=== PATIENT | male | born 1950 | race Asian ===

== ENCOUNTER → 2016-08-07 | Outpatient (CLI) | payer MEDICARE ==
[~2016-08-07] MED LIST: IBUPROFEN PO; LIPITOR PO; LORTAB 5/500 TA1 TA1 PO; MEDROL PO; MOTRIN600 MG
--- NOTE | ~2016-08-07 | CR184 ---
[facility] A Service of [facility] [place] [facility] RADIOLOGY TEXT RESULTS PATIENT: AMANDA WALDEN V LOCATION: [facility] : 50 UNIT #: [id number] AGE: [address]: Chastity Rodriguez MD SEX: M ORDER DR: [id number] [facility] [address] [place], [place] [address] [id number] O MR#: [id number] Acc #: [id number] NAME: AMANDA WALDEN V. : 1950 SEX: M STUDY DATE/TIME: 08/07/2016 17:04 UNIT: [facility] ROOM: STUDY DESCRIPTION: CR Lumbar Spine Min 4 Views Attending Physician: Chastity Rodriguez M.D. Referring Physician: Chastity Rodriguez M.D. Ordering Physician: Chastity Rodriguez M.D. Primary Care Physician: Chastity Rodriguez M.D. MEDICAL IMAGING REPORT This report is preliminary unless electronic signature is present EXAM Lumbar spine 4 views HISTORY 66-year-old male. Pain radiating down right leg. Onset 5 days ago. No known injury. FINDINGS AP, lateral and flexion/extension lateral views of the lumbar spine were obtained. Mild multilevel degenerative disc changes most pronounced L2-3 and L5-S1. At L2-3, there is mild disc space narrowing, endplate sclerosis, and anterior hypertrophic change. Mild degenerative change also noted at L1-2. At L5-S1, there is disc space narrowing, sclerosis, and anterior hypertrophic change. No fracture. No spondylolysis or spondylolisthesis. No abnormal motion identified on the flexion/extension views. Posterior elements unremarkable. The soft tissues appear normal. IMPRESSION Mild multilevel degenerative disc disease most pronounced L2-3 and L5-S1 and to a lesser extent at L1-2. Comparison is made to a study from 08/17/2009 and there has been progression of the degenerative disc changes at L1-2 and L2-3 and also at the L5-S1 level. No acute abnormality identified. Dictated by... Sherry Boateng M.D. THIS IS AN ELECTRONICALLY VERIFIED REPORT Sherry Boateng M.D. at 08/12/2016 2:13 PM KAILYN/anusha TD: 08/08/2016 08:26 [facility]. [facility] A Service of [facility] RADIOLOGY TEXT RESULTS PATIENT: AMANDA WALDEN V LOCATION: [facility] #: [id number] : [birth year] UNIT #: [id number] AGE: [address]: Chastity Rodriguez MD SEX: M ORDER DR: JOB #: [id number] MEDICAL IMAGING REPORT Page 1 of 1 COPY
== END | disposition home or self-care (01) ==
LOC: CRAD 16:43
DX: M51.36 Other intervertebral disc degeneration, lumbar region (principal); M51.37 Other intervertebral disc degeneration, lumbosacral region
CPT/HCPCS: 72110

== ENCOUNTER → 2016-09-09 | Outpatient (CLI) | payer MEDICARE ==
--- NOTE | ~2016-09-09 | MR113 ---
[facility] A Service of [facility] & [facility] RADIOLOGY TEXT RESULTS PATIENT: AMANDA WALDEN LOCATION: [facility] : 50 UNIT #: [id number] AGE: [address]: Chastity Rodriguez MD SEX: M ORDER DR: [id number] [facility] [address] [place], [place] [address] [id number] O MR#: [id number] Acc #: [id number] NAME: AMANDA WALDEN : 1950 SEX: M STUDY DATE/TIME: 09/09/2016 13:49 UNIT: [facility] ROOM: STUDY DESCRIPTION: MR Lumbar Wo Contrast Attending Physician: Chastity Rodriguez M.D. Referring Physician: Chastity Rodriguez M.D. Ordering Physician: Chastity Rodriguez M.D. Primary Care Physician: Chastity Rodriguez M.D. MRI CENTER REPORT This report is preliminary unless electronic signature is present. EXAM MRI of the lumbar spine without contrast dated 09/09/2016. COMPARISON MRI lumbar spine without contrast dated 09/29/2007 and plain films lumbar spine dated 08/17/2009 and 08/07/2016. HISTORY Right hip to right leg pain with numbness for 2 weeks. Low back pain. FINDINGS Multisequence multiplanar imaging of the lumbar spine was obtained without contrast as per the protocol. Vertebral body heights are relatively preserved. Disc osteophyte complex are noted throughout the visualized thoracolumbar spine, worse at L4-5. Conus terminates at L1-2. Signal of conus and cauda equina are within normal limits. Prominence of posterior epidural fat is noted at L2-3 to L4-5 levels with canal stenosis. Epidural lipomatosis is present. Increased T2 signal 1.5 cm lesion is noted in the posterolateral upper to mid right kidney, incompletely characterized on the current study. It is probably a small cyst based on statistics. It was not well seen on the prior study from 9 years ago. There are no prior abdominal imaging available in the current facility. L1-2: Concentric disc bulge with znep-up-yyyuhyrg bilateral facet change. Borderline size to mild canal stenosis is seen without any significant neural foraminal narrowing. L2-3: Moderate disc bulge with superimposed right ukusqfq-cq-vgbcnxiriwqd protrusion. Mild bilateral facet changes are noted with xupjnvxn-qz-xzmane canal stenosis. Mild bilateral lateral recess stenosis are noted with mild bilateral neural foraminal narrowing. It is slightly worse. [facility] A Service of [facility] RADIOLOGY TEXT RESULTS PATIENT: AMANDA WALDEN [facility] : 50 UNIT #: [id number] AGE: [address]: Chastity Rodriguez MD SEX: M ORDER DR: L3-4: Concentric disc bulge with mild left facet hypertrophic change. There is a vzafv-zn-uiaa central moderate protrusion with wfphdeel-ee-kffsqq canal stenosis. Mild bilateral lateral recess stenosis are noted with mild bilateral neural foraminal narrowing. Mild interval worsening. L4-5: Moderate disc bulge with superimposed wrah-wz-uokiq subarticular moderate broad-based protrusion with an extruded component in the right subarticular region. It measures 0.7 x 1.6 x 1.3 cm. Severe canal stenosis with severe right lateral recess, mild left lateral recess stenosis and mild bilateral neural foraminal narrowing are noted, worse level. Mild to moderate right and mild left facet hypertrophic changes are noted. L5-S1: Disc osteophyte complex which is asymmetrically prominent in the left ithaugq-pn-swctf subarticular region with mild impingement of the right S1 nerve root. Mild inferior bilateral neural foraminal narrowing is seen with mild bilateral facet changes. Relatively stable. IMPRESSION 1. Degenerative changes are at multiple levels. They have relatively worsened with the worst level of L4-5. 2. There is a left to right subarticular moderate broad-based protrusion at L4-5 with an extruded component in the right gvybvti-ji-kqpcoqbcncgx region measuring 1.3 cm in height. Axially it measures 0.7 x 1.6 cm. It causes severe canal stenosis and severe impingement of the right L5 nerve root in the right lateral recess. 3. Refer above. 4. Incompletely evaluated right renal lesion as described above. Statistically it is probably a cyst but there are no previous studies available for comparison and without contrast solid tumors cannot be excluded. Dictated by... Louisa Arriaga M.D. THIS IS AN ELECTRONICALLY VERIFIED REPORT Louisa Arriaga M.D. at 09/11/2016 2:12 PM CPR/cmm TD: 09/10/2016 10:07 JOB #: [id number] MRI CENTER REPORT Page 1 of 1 COPY
== END | disposition home or self-care (01) ==
LOC: CMRI 13:23
DX: M51.36 Other intervertebral disc degeneration, lumbar region (principal); M47.896 Other spondylosis, lumbar region; M51.26 Other intervertebral disc displacement, lumbar region; N28.89 Other specified disorders of kidney and ureter
CPT/HCPCS: 72148

== ENCOUNTER → 2016-09-17 | Outpatient (CLI) | payer MEDICARE ==
--- NOTE | ~2016-09-17 | CT3 ---
[facility] A Service of [facility] & [facility] RADIOLOGY TEXT RESULTS PATIENT: AMANDA WALDEN [facility] 50 UNIT #: [id number] AGE: [address]: Chastity Rodriguez MD SEX: M ORDER DR: [id number] [facility] [address] [place], [place] [address] [id number] O MR#: [id number] [facility] #: [id number] NAME: AMANDA WALDEN : 1950 SEX: M STUDY DATE/TIME: 09/17/2016 10:05 UNIT: [facility] ROOM: STUDY DESCRIPTION: CT Abd and Pelv WWo Cont Attending Physician: Chastity Rodriguez M.D. Referring Physician: Chastity Rodriguez M.D. Ordering Physician: Chastity Rodriguez M.D. Primary Care Physician: Chastity Rodriguez M.D. MEDICAL IMAGING REPORT This report is preliminary unless electronic signature is present EXAM CT of the abdomen and pelvis with and without contrast INDICATIONS Renal mass seen on MRI of the lumbar spine. Study is performed for further characterization. Renal mass on the right. TECHNIQUE CT of the abdomen and pelvis performed before and after the administration of IV contrast using a multiphase protocol. Coronal and sagittal reformatted images were obtained. This CT exam was performed with one or more of the following radiation dose reduction techniques: Automatic exposure control, adjustment of mA and/or kV according to patient size, and iterative reconstruction. Comparison with MRI of the lumbar spine 09/09/2016. FINDINGS There is scarring within both lower lobes. The liver, gallbladder and spleen are unremarkable. There is no evidence for renal stone. There is a benign cyst in the right kidney, which accounts for the finding on the MRI. There is a tiny cyst in the left kidney. There is no evidence for a solid renal mass. The adrenal glands and pancreas are unremarkable. PELVIS: The colon is unremarkable. The appendix is normal. There is tortuosity of the infrarenal abdominal aorta with some mild ectasia. There is some mild atherosclerotic atheromatous plaque located on the right within the infrarenal abdominal aorta. Urinary bladder is unremarkable. Prostate is mildly enlarged. Bone windows show degenerative change at L5-S1. [facility] A Service of [facility] RADIOLOGY TEXT RESULTS PATIENT: AMANDA WALDEN LOCATION: [facility] : 50 UNIT #: [id number] AGE: [address]: Chastity Rodriguez MD SEX: M ORDER DR: IMPRESSION There is no solid renal mass. The finding on the MRI represents a benign cyst in the right kidney. There is also a tiny cyst in the left kidney. Dictated by... Tom Boateng M.D. THIS IS AN ELECTRONICALLY VERIFIED REPORT Tom Boateng M.D. at 09/18/2016 7:10 AM ALISON/elian TD: 09/18/2016 00:47 JOB #: [id number] MEDICAL IMAGING REPORT Page 1 of 1 COPY
[2016-09-17 12:26] LABS: POC - CREATININE 0.72 mg/dL (0.64-1.27); POC - GFR >60.0 mL/min (>60)
== END | disposition home or self-care (01) ==
LOC: CCAT 09:21
PROVIDERS: Internal Medicine
DX: N28.89 Other specified disorders of kidney and ureter (principal); N28.1 Cyst of kidney, acquired
CPT/HCPCS: 74178; 82565; Q9967